=== PATIENT | male | born 1990 | race Caucasian/White ===

== ENCOUNTER 2018-04-03 19:40 | Emergency (ER) | payer OTHER ==
--- NOTE | 2018-04-03 20:40 | ED Physician Documentation ---
PD HPI HEENT - Stated complaint Stated Complaint: SOA/THROAT SWELLING - Chief complaint Chief Complaint: Heent - History obtained from History obtained from: Patient - History of Present Illness Timing - onset: How many days ago (4) Timing - details: Gradual onset, Waxing and waning Location: Throat Improves: Nothing Worsens: Swalllowing Associated symptoms: Fever, Unable to swallow. No: Congestion, Rhinorrhea, Facial swelling Review of Systems Constitutional: reports: Fever, Chills Nose: denies: Rhinorrhea / runny nose, Congestion Throat: reports: Sore throat Cardiac: denies: Chest pain / pressure, Palpitations Respiratory: denies: Dyspnea, Cough PD PAST MEDICAL HISTORY - Past Medical History Past Medical History: No - Past Surgical History Past Surgical History: Yes - Present Medications Home Medications: Ambulatory Orders Medication Instructions Recorded Confirmed Amox/Clav 875/125 [Augmentin] 1 each PO Q12H #20 tablet 04/03/18 Hydrocodone/Acetaminophen 1 - 2 each PO Q6H PRN #10 tablet 04/03/18 [Hydrocodon-Acetaminophen 5-325] Naproxen 500 mg PO 04/03/18 predniSONE [Deltasone] 60 mg PO DAILY 5 Days tablet 04/03/18 - Allergies Allergies/Adverse Reactions: Allergies Allergy/AdvReac Type Severity Reaction Status Date / Time No Known Drug Allergies Allergy Verified 04/03/18 19:56 - Social History Does the pt smoke?: No Smoking Status: Never smoker Does the pt drink ETOH?: No Does the pt have substance abuse?: No - Immunizations Immunizations are current?: Yes - POLST Patient has POLST: No PD ED PE NORMAL - Vitals Vital signs reviewed: Yes - General General: Alert and oriented X 3 - HEENT HEENT: Ears normal, Other (TMs nl. Mild assymetric swelling L tonsil, could be early [employer]. No adenopathy.) - Neck Neck: Supple, no meningeal sign, No bony TTP - Cardiac Cardiac: RRR, No murmur - Respiratory Respiratory: No respiratory distress, Clear bilaterally - Abdomen Abdomen: Non tender - Neuro Neuro: Alert and oriented X 3, Normal speech Results - Vitals Vitals: Vital Signs - 24 hr 04/03/18 19:53 Temperature 37.1 C Heart Rate 105 H Respiratory 18 Rate Blood Pressure 140/98 H O2 Saturation 98 Oxygen O2 Source Room air - Labs Labs: Laboratory Tests 04/03/18 20:13 Group A Strep Rapid Negative PD MEDICAL DECISION MAKING - ED course ED course: 27-year-old gentleman with sore throat predominantly on the left, could be concerning for very early peritonsillar abscess and therefore antibiotics were used in addition to steroids. Departure - Departure Disposition: Home, Self Care Clinical Impression: Tonsillitis Condition: Good Record reviewed to determine appropriate education?: Yes Instructions: ED Peritonsillar Infec Abx No I andD Prescriptions: Amox/Clav 875/125 [Augmentin] 1 each PO Q12H #20 tablet Hydrocodone/Acetaminophen [Hydrocodon-Acetaminophen 5-325] 1 - 2 each PO Q6H PRN #10 tablet PRN Reason: pain predniSONE [Deltasone] 60 mg PO DAILY 5 Days tablet Comments: Recheck with your doctor on Saturday if not better, return if worse or if new symptoms develop. Your blood pressure was elevated today on check into the emergency department. This does not mean that you have hypertension, it is a common phenomenon to come to the emergency department and have elevated blood pressure. I recommend that you see your primary care physician within the week to have it rechecked when you are feeling better.
[2018-04-03] MEDS: AMOX/CLAV 875 MG/125 MG TABLET PO STA (20:49)
[2018-04-03] MEDS: HYDROcod/ACET 5/325 Prepack 4 PO STA (20:49)
[2018-04-03] MEDS: predniSONE 20 MG TABLET PO STA (20:49)
[2018-04-03 20:59] VITALS: BP 141/101
== END 2018-04-03 20:59 | disposition home or self-care (01) ==
LOC: ED 19:40
DX: J03.90 Acute tonsillitis, unspecified (principal); R03.0 Elevated blood-pressure reading, without diagnosis of hypertension
CPT/HCPCS: 87070; 87430; 99283